=== PATIENT | female | born 2000 | race Caucasian/White ===

== ENCOUNTER 2018-11-23 00:15 | Emergency (ER) | payer OTHER ==
[~2018-11-23] VITALS: Ht 167.6 cm; Wt 61.7 kg
--- NOTE | 2018-11-23 00:24 | NUR ---
18 y/o f biba w/c/o "possible allergic reaction" pt states she took tylenol with codeine prior to poss reaction. pt aaox4, gcs 15. pt arrived with breathing treatment in process given by ems. pt speaking in full sentences. no accessory muscle use noted. pt has wheezes to bilat bases on expiration. skin is cool and pale. pt appears aggitated. peripheral pulses prsesnt. +cms. cap refill <3. NAD distress noted. pt has hx of anxiety. allergies to penicillins and amoxicillin. pt speaking on face time on cell phone with mother at this time. will continue to monitor.
--- NOTE | 2018-11-23 00:24 | NUR ---
Note undone in EDM - 11/23/18 at 0148 by KAZ 18 y/o f biba w/c/o "possible allergic reaction" pt is not sure what she ate to cause it, ate fruit earlier. pt aaox4, gcs 15. pt arrived with breathing treatment in process given by ems. pt speaking in full sentences. no accessory muscle use noted. pt has wheezes to bilat bases on expiration. skin is cool and pale. pt appears aggitated. peripheral pulses prsesnt. +cms. cap refill <3. NAD distress noted. pt has hx of anxiety. allergies to penicillins and amoxicillin. pt speaking on face time on cell phone with mother at this time. will continue to monitor.
[2018-11-23] MEDS ORDERED: predniSONE 20 MG TAB PO ONE (00:45)
--- NOTE | 2018-11-23 01:09 | NUR ---
PT RESTING IN BED WITH FRIEND AT THE BEDSIDE. RR EVEN/UNLABORED. PT IN RELAXED POSITION.
[2018-11-23 02:05] VITALS: BP 116/64
--- NOTE | 2018-11-23 02:05 | NUR ---
Patient discharged with v/s stable. Written and verbal after care instructions given and explained. Patient alert, oriented and verbalized understanding of instructions. Ambulatory with steady gait. All questions addressed prior to discharge. ID band removed. Patient advised to follow up with PMD. Rx of PREDNISONE, FAMOTIDINE, AND BENADRYL given. Patient educated on indication of medication including possible reaction and side effects. Opportunity to ask questions provided and answered.
== END 2018-11-23 02:05 | disposition home or self-care (01) ==
LOC: MED 00:15
DX: T78.40XA Allergy, unspecified, initial encounter (principal); R06.02 Shortness of breath; F41.9 Anxiety disorder, unspecified; Z88.0 Allergy status to penicillin; Z88.1 Allergy status to other antibiotic agents; X58.XXXA Exposure to other specified factors, initial encounter
CPT/HCPCS: 99283; J7512; Q0163